=== PATIENT | female | born 1935 | race Caucasian/White ===

== ENCOUNTER → 2018-03-03 | Outpatient (CLI) | payer OTHER, MEDICARE ==
[~2018-03-03] MED LIST: ADULT LOW DOSE81 MG PO; AMITRIPTYLINE H10 M3 PO; APAP650 PO; ASPIRIN81 M2 PO; ATIVAN1 MG PO; CARDIZEM CD 18180 M3 PO; CARDIZEM CD180 MG PO; CARTIA XT180 M1 PO; CHONDROITIN SU500 G1 PO; CO Q-1010 MG PO; CO Q-10100 MG PO; ELIQUIS2.5 MG PO; FLECAINIDE ACET50 M1 PO; FLEX ABILITY C1 EACH PO; GLUCOSAMINE &1 EACH PO; GLUCOSAMINE CH1 EAC2 PO; GLUCOSAMINE1000 MG PO; HYDROCODONE-AP1 EAC6 PO; LIVALO2 MG PO; MORPHINE SULFAT15 M3 PO; NEURONTIN 300300 M1 PO; NORCO 5-325 TA1 EACH PO; OMEPRAZOLE 20 M20 M1 PO; PRADAXA150 MG PO; PREDNISONE 20 M20 MG PO; PRESERVISION T1 EACH PO; PROBIOTIC1 EAC2 PO; PROPAFENONE 22225 M1 PO; PROPAFENONE 22225 MG PO; RYTHMOL150 MG; RYTHMOL225 MG PO; SIMVASTATIN40 MG PO; SYNTHROID150 MCG PO; ULTRAM 50MG TAB50 MG PO; VALACYCLOVIR1000 MG PO; ZOCOR 20 MG TAB20 M1; ZOCOR 20 MG TAB20 M1 PO; [UNRECOGNIZED DRUG - OTHER] OPHTHALMIC
== END ==
LOC: ULTRA 08:41
DX: E04.2 Nontoxic multinodular goiter (principal)

== ENCOUNTER → 2018-11-17 | Outpatient (CLI) | payer OTHER, MEDICARE | LOC: RAD 11:10 | DX: J98.11 Atelectasis (principal); J98.4 Other disorders of lung; Z88.8 Allergy status to other drugs, medicaments and biological substances; Z95.9 Presence of cardiac and vascular implant and graft, unspecified ==

== ENCOUNTER → 2019-09-01 | Outpatient (CLI) | payer OTHER, MEDICARE | LOC: SJCVC 13:35 | DX: R94.31 Abnormal electrocardiogram [ECG] [EKG] (principal); I48.0 Paroxysmal atrial fibrillation ==

== ENCOUNTER → 2020-02-29 | Outpatient (CLI) | payer OTHER, MEDICARE | LOC: SJCVCIMAG 09:32 | PROVIDERS: ATTEND Internal Medicine Cardiovascular Disease | DX: I08.3 Combined rheumatic disorders of mitral, aortic and tricuspid valves (principal); I11.9 Hypertensive heart disease without heart failure; R94.31 Abnormal electrocardiogram [ECG] [EKG]; I45.2 Bifascicular block; I48.0 Paroxysmal atrial fibrillation; E78.00 Pure hypercholesterolemia, unspecified; D68.59 Other primary thrombophilia; Z79.899 Other long term (current) drug therapy ==

== ENCOUNTER → 2020-03-13 | Outpatient (CLI) | payer OTHER, MEDICARE | LOC: SJCVC 15:18 | PROVIDERS: ATTEND Internal Medicine Cardiovascular Disease | DX: I45.10 Unspecified right bundle-branch block (principal); R94.31 Abnormal electrocardiogram [ECG] [EKG]; I48.0 Paroxysmal atrial fibrillation ==

== ENCOUNTER → 2020-03-15 | Outpatient (CLI) | payer OTHER, MEDICARE | LOC: LAB 07:42 | PROVIDERS: ATTEND Internal Medicine Cardiovascular Disease | DX: Z01.812 Encounter for preprocedural laboratory examination (principal); Z20.828 Contact with and (suspected) exposure to other viral communicable diseases ==

== ENCOUNTER → 2020-03-20 | Outpatient (CLI) | payer OTHER, MEDICARE ==
[~2020-03-20] VITALS: Ht 162.6 cm; Wt 50.8 kg
[~2020-03-20] MED LIST changes: +ARIMIDEX1 MG PO; +FISH OIL 1,0001 EAC9 PO
--- NOTE | ~2020-03-20 | P ---
[facility] [place] [address] PROCEDURE REPORT Name: JANELL AKINS Room #: REG [facility]#: [id number] Admission: 03/20/20 Attend Phys: Riki Kevin MD Discharge: Date of : 35 Report #: [id number] THIS REPORT FOR: cc: Souleymane Langley MD, Rene P. MD Couchonnal, Luis F. MD ~ CC: Riki Langley PROCEDURE: Cardioversion. PREOPERATIVE DIAGNOSIS: Atrial fibrillation. POSTOPERATIVE DIAGNOSIS: Atrial fibrillation. DESCRIPTION OF PROCEDURE: The patient underwent informed consent. She was prepped and draped in a standard fashion with patches placed in AP position. She was sedated by the Anesthesiology service and once sedated, she underwent a 200 joule synchronized cardioversion with islam of sinus rhythm. There were no procedure related complications. CONCLUSIONS: Successful DC cardioversion with islam of sinus rhythm. By: [id number] Riki Kevin MD /nt
[2020-03-20 07:37] VITALS: BP 118/70
[2020-03-20 07:55] LABS: EOSINOPHILS 3.2 % (0.0-3.0); HEMATOCRIT 37.7 % (37.0-47.0); HEMOGLOBIN 12.4 gm/dL (12.0-15.0); LYMPHOCYTES 19.3 % (24.0-44.0); MCH 33.1 pg (26.0-34.0); MCHC 32.9 g/dL (28.0-37.0); MCV 100.6 fL (80.0-100.0); MONOCYTES 11.3 % (1.0-8.0); PLATELET COUNT 206 thou/uL (150-400); POLYS 65.2 % (36.0-66.0); RBC 3.74 mil/uL (4.20-5.00); RDW 13.7 % (10.5-14.5); WBC 6.1 thou/uL (4.0-11.0)
[2020-03-20 08:08] LABS: CALCIUM 8.3 mg/dL (8.5-10.1); CREATININE 0.9 mg/dL (0.6-1.0); POTASSIUM 3.7 mmol/L (3.5-5.1)
[2020-03-20 08:13] LABS: ALBUMIN 3.8 g/dL (3.4-5.0); TOTAL BILIRUBIN 0.6 mg/dL (0.2-1.0)
[2020-03-20 08:16] LABS: APTT 29.9 Seconds (24.5-32.8); INR 1.1; PROTIME 11.1 Seconds (9.3-11.4)
== END | disposition home or self-care (01) ==
LOC: CATH 06:31
PROVIDERS: ATTEND Internal Medicine Cardiovascular Disease
DX: I48.91 Unspecified atrial fibrillation (principal); Z98.890 Other specified postprocedural states; Z90.49 Acquired absence of other specified parts of digestive tract; Z90.710 Acquired absence of both cervix and uterus; Z79.899 Other long term (current) drug therapy; Z79.01 Long term (current) use of anticoagulants
CPT/HCPCS: 62110; 62900

== ENCOUNTER → 2020-03-27 | Outpatient (CLI) | payer OTHER, MEDICARE | LOC: SJCVC 16:06 | PROVIDERS: ATTEND Internal Medicine Cardiovascular Disease | DX: I48.0 Paroxysmal atrial fibrillation (principal); I49.9 Cardiac arrhythmia, unspecified; I44.0 Atrioventricular block, first degree; R94.31 Abnormal electrocardiogram [ECG] [EKG]; I10 Essential (primary) hypertension; E78.00 Pure hypercholesterolemia, unspecified; Z79.899 Other long term (current) drug therapy ==

== ENCOUNTER → 2020-04-05 | Outpatient (CLI) | payer OTHER, MEDICARE ==
[2020-04-05 07:35] VITALS: BP 113/54
--- NOTE | 2020-04-06 10:41 | P ---
[address] [address] PROCEDURE REPORT Name: JANELL AKINS Room #: REG [facility]#: [id number] Admission: 04/05/20 Attend Phys: Riki Kevin MD Discharge: Date of : 35 Report #: [id number] THIS REPORT FOR: cc: Souleymane Langley MD, Rene P. MD Couchonnal, Luis F. MD ~ DATE OF SERVICE: 04/05/2020 IMPLANTATION REPORT PREOPERATIVE DIAGNOSIS: Atrial fibrillation. POSTOPERATIVE DIAGNOSIS: Atrial fibrillation. PROCEDURES PERFORMED: 1. Explantation of a loop recorder. 2. Implantation of a new loop recorder. DESCRIPTION OF PROCEDURE: The patient underwent informed consent. She was prepped and draped in a sterile fashion. I injected lidocaine at the prior incision site. Incision was made. The old device was extracted and then a new device was injected. A single layer of suture was performed and surgical glue and a dressing was placed. There were no procedure related complications. The implanted device was a [employer] LINQ, model #[id number]. CONCLUSIONS: Successful implantation of a new loop recorder. <ELECTRONICALLY SIGNED> By: Riki Kevin MD 04/06/20 [id number] Riki Kevin MD /nt
== END | disposition home or self-care (01) ==
LOC: CATH 06:24
PROVIDERS: ATTEND Internal Medicine Cardiovascular Disease
DX: I48.91 Unspecified atrial fibrillation (principal); Z98.890 Other specified postprocedural states; Z79.899 Other long term (current) drug therapy; Z79.01 Long term (current) use of anticoagulants; Z88.8 Allergy status to other drugs, medicaments and biological substances

== ENCOUNTER → 2020-05-09 | Outpatient (CLI) | payer OTHER, MEDICARE | LOC: SJCVC 15:27 | PROVIDERS: ATTEND Internal Medicine Cardiovascular Disease | DX: I48.19 Other persistent atrial fibrillation (principal); I48.0 Paroxysmal atrial fibrillation; I45.10 Unspecified right bundle-branch block; R94.31 Abnormal electrocardiogram [ECG] [EKG]; I10 Essential (primary) hypertension; E03.9 Hypothyroidism, unspecified; Z82.49 Family history of ischemic heart disease and other diseases of the circulatory system; Z79.899 Other long term (current) drug therapy ==

== ENCOUNTER → 2020-09-18 | Outpatient (CLI) | payer OTHER, MEDICARE | LOC: SJCVC 10:48 | PROVIDERS: ATTEND Internal Medicine Cardiovascular Disease | DX: R94.31 Abnormal electrocardiogram [ECG] [EKG] (principal); I45.10 Unspecified right bundle-branch block; I44.0 Atrioventricular block, first degree; I48.0 Paroxysmal atrial fibrillation; I10 Essential (primary) hypertension; R07.9 Chest pain, unspecified; K21.9 Gastro-esophageal reflux disease without esophagitis; R53.83 Other fatigue; E03.9 Hypothyroidism, unspecified; E78.00 Pure hypercholesterolemia, unspecified; Z95.810 Presence of automatic (implantable) cardiac defibrillator; Z90.49 Acquired absence of other specified parts of digestive tract; Z88.5 Allergy status to narcotic agent; Z88.1 Allergy status to other antibiotic agents; Z79.899 Other long term (current) drug therapy; Z82.49 Family history of ischemic heart disease and other diseases of the circulatory system ==

== ENCOUNTER → 2020-09-27 | Outpatient (CLI) | payer OTHER, MEDICARE | LOC: SJCVCIMAG 08:16 | PROVIDERS: ATTEND Internal Medicine Cardiovascular Disease | DX: I44.0 Atrioventricular block, first degree (principal); R07.89 Other chest pain; I48.91 Unspecified atrial fibrillation; I10 Essential (primary) hypertension; Z79.899 Other long term (current) drug therapy; Z88.1 Allergy status to other antibiotic agents; Z88.8 Allergy status to other drugs, medicaments and biological substances ==

== ENCOUNTER → 2020-10-10 | Outpatient (CLI) | payer OTHER, MEDICARE | LOC: SJCVC 13:15 | PROVIDERS: ATTEND Internal Medicine Cardiovascular Disease | DX: R94.31 Abnormal electrocardiogram [ECG] [EKG] (principal); I45.10 Unspecified right bundle-branch block; I44.0 Atrioventricular block, first degree; I48.0 Paroxysmal atrial fibrillation; I10 Essential (primary) hypertension; E03.9 Hypothyroidism, unspecified; Z90.49 Acquired absence of other specified parts of digestive tract; Z90.710 Acquired absence of both cervix and uterus; Z88.5 Allergy status to narcotic agent; Z88.8 Allergy status to other drugs, medicaments and biological substances; Z79.899 Other long term (current) drug therapy; Z82.49 Family history of ischemic heart disease and other diseases of the circulatory system ==

== ENCOUNTER → 2021-04-11 | Outpatient (CLI) | payer OTHER, MEDICARE | LOC: SJCVC 10:52 | PROVIDERS: ATTEND Internal Medicine Cardiovascular Disease | DX: E03.9 Hypothyroidism, unspecified (principal); E78.00 Pure hypercholesterolemia, unspecified; K21.9 Gastro-esophageal reflux disease without esophagitis; I10 Essential (primary) hypertension; Z82.49 Family history of ischemic heart disease and other diseases of the circulatory system; Z72.89 Other problems related to lifestyle; Z79.899 Other long term (current) drug therapy ==

== ENCOUNTER → 2021-04-30 | Outpatient (CLI) | payer OTHER, MEDICARE | LOC: SJCVC 14:22 | PROVIDERS: ATTEND Internal Medicine Cardiovascular Disease | DX: I44.0 Atrioventricular block, first degree (principal); R94.31 Abnormal electrocardiogram [ECG] [EKG]; I48.0 Paroxysmal atrial fibrillation; I10 Essential (primary) hypertension; E03.9 Hypothyroidism, unspecified; M35.3 Polymyalgia rheumatica; M54.40 Lumbago with sciatica, unspecified side; B02.9 Zoster without complications; Z72.89 Other problems related to lifestyle; Z79.899 Other long term (current) drug therapy; Z88.5 Allergy status to narcotic agent; Z88.8 Allergy status to other drugs, medicaments and biological substances ==